=== PATIENT | female | born 1965 | race Caucasian/White ===

== ENCOUNTER 2020-03-27 07:59 | Inpatient (IN) | payer SELFPAY ==
[~2020-03-27] VITALS: Ht 160 cm; Wt 70.8 kg
[2020-03-27 08:11] VITALS: BP 140/87
[2020-03-27 08:22] LABS: BASO % 0.6 % (0.0-1.0); EOS # 0.1 10*3/uL (0.0-0.4); EOS % 0.7 % (1.0-4.0); HEMATOCRIT 43.1 % (37.0-47.0); LYMPH # 1.9 10*3/uL (1.3-4.4); LYMPH % 26.8 % (27.0-41.0); MEAN CELL VOLUME 86.5 fl (81.0-99.0); MEAN CORPUSCULAR HGB 31.3 pg (27.0-31.0); MEAN CORPUSCULAR HGB CONC 36.2 g/dl (33.0-37.0); MONO # 0.4 10*3/uL (0.1-1.0); NEUT # 4.7 10*3/uL (2.3-7.9); NEUT % 65.6 % (47.0-73.0); PLATELET COUNT AUTOMATED 293 10*3/uL (130-400); RED BLOOD COUNT 4.98 10*6/uL (4.10-5.10); WHITE BLOOD COUNT 7.1 10*3/uL (4.8-10.8)
[2020-03-27 08:33] LABS: ACT PARTIAL THROMBO TIME 26.7 SECONDS (20.0-32.1)
[2020-03-27 08:40] LABS: ALBUMIN 3.9 gm/dl (3.1-4.5); ALKALINE PHOSPHATASE 93 U/L (45-117); BUN 11 mg/dl (7-24); CHLORIDE 108 mmol/L (98-107); CREATININE 0.75 mg/dL (0.55-1.02); POTASSIUM 3.6 mmol/L (3.5-5.1); SGOT/AST 15 IU/L (3-35); SGPT/ALT 28 U/L (12-78); SODIUM 137 mmol/L (136-145); TOTAL PROTEIN 8.2 gm/dL (6.4-8.2)
[2020-03-27 08:45] LABS: TROPONIN I < 0.015 ng/ml (<0.045)
[2020-03-27 09:45] VITALS: BP 137/92
--- NOTE | 2020-03-27 09:45 | NUR ---
A 54, admitted to 5E, under the services of CANDACE Olvera MD with a diagnosis of CHEST PAIN. Chief complaint is CHEST PAIN. Patient arrived via stretcher from ER. Monitor applied. Initial assessment completed. Vital signs taken and recorded. CANDACE OLVERA MD notified of admission to the unit. Orders received. See assessment for past medical history, medications and allergies. Patient and/or family oriented to unit. [address] visitation policy reviewed. Clothing/patient valuable form completed. ROWDY TOLEDO
[2020-03-27 12:00] VITALS: BP 131/80
[2020-03-27] MEDS ORDERED: SEROQUEL400 M1 PO (12:13)
[2020-03-27] MEDS ORDERED: WELLBUTRIN XL150 MG PO (12:14)
[2020-03-27] MEDS ORDERED: DOXEPIN HCL100 MG PO (12:51)
[2020-03-27 16:00] VITALS: BP 131/86
--- NOTE | 2020-03-27 19:32 | NUR ---
24 HR CHART CHECK COMPLETE
--- NOTE | 2020-03-27 19:37 | NUR ---
PT SITTING UP IN BED WATCHING TV AT THIS TIME. RESPS ARE EASY AND NONLABORED. NO C/O CP VOICED. BED IS LOW, CALL LIGHT WITHIN REACH. WILL CONTINUE TO MONITOR.
[2020-03-27 20:00] VITALS: BP 108/76
[2020-03-28] VITALS: BP 93/61
[2020-03-28 06:21] LABS: CHOLESTEROL 184 mg/dL (<200); HDL CHOLESTEROL 39 mg/dl (40-60); LDL CHOLESTEROL 103 mg/dL (9-159); TRIGLYCERIDES 208 mg/dl (<150); VLDL CHOLESTEROL 42 mg/dL (6-40)
[2020-03-28 08:00] VITALS: BP 92/58
[2020-03-28 12:00] VITALS: BP 93/65
--- NOTE | 2020-03-28 13:18 | NUR ---
PT MEDICATED WITH TYLENOL FOR HEADHACHE. WILL MONITOR.
--- NOTE | 2020-03-28 14:10 | NUR ---
medication effective per pt. call light in reach. will monitor
--- NOTE | 2020-03-28 15:30 | NUR ---
Pt c/o headache, Dr Andrade notified, new orders received.
--- NOTE | 2020-03-28 15:41 | NUR ---
MEDICATED WITH TORADOL PER ORDERS FOR C/O HEADACHE. CALL LIGHT IN REACH. WILL MONITOR
[2020-03-28 16:00] VITALS: BP 94/56
--- NOTE | 2020-03-28 16:30 | NUR ---
PT STATES MEDICATION EFFECTIVE. CALL LIGHT IN REACH. WILL MONITOR
[2020-03-28 20:00] VITALS: BP 114/71
--- NOTE | 2020-03-28 20:43 | NUR ---
NOTIFIED OF PATIENT'S REQUEST FOR SOMETHING TO MOVE HER BOWELS. CLAIMS LAST BM NOT SINCE SUNDAY 03/25. NEW ORDER RECEIVED.
--- NOTE | 2020-03-28 20:53 | NUR ---
PT TAKEN OFF FILAMENT SHAPER FOR SHOWER. PT ALERT & ORIENTED X3. STEADY GAIT OBSERVED. PT EDUCATED ON HOW TO CALL RN/PA IF NEEDED. PT VERBALIZES UNDERSTANDING. WILL MONITOR. CALL LIGHT IN REACH.
--- NOTE | 2020-03-28 22:16 | NUR ---
PO TYLENOL ADMINSTERED PER PRN ORDER FOR C/O HEADACHE. WILL MONITOR EFFECTIVENESS. CALL LIGHT IN REACH.
--- NOTE | 2020-03-28 23:05 | NUR ---
EARLIER TYLENOL APPEARS EFFECTIVE. PT RESTING IN BED. RESPS EASY/NON-LABORED. WILL MONITOR. CALL LIGHT IN REACH.
[2020-03-29] VITALS: BP 115/70
[2020-03-29] MEDS ORDERED: PANTOPRAZOLE SO40 MG PO (08:48)
--- NOTE | 2020-03-29 09:35 | NUR ---
pt sheila for stress test
--- NOTE | 2020-03-29 10:51 | NUR ---
INFORMED COSNET SIGNED FOR LEXISCAN STRESS TEST WITH DR. KIRK. RESTING EKG RBBB, HR 81, BP 104/80. PULSE OX 100% AND LUNGS CLEAR BILATERALLY. COMPLETED ONE MINUTE OF LEXISCAN PROTOCOL RECEIVING LEXISCAN 0.4MG OVER 10 SECONDS. NO ARRHYTHMIAS NOTED. NONDIAGNOSTIC ST CHANGES PRESENT. PT C/O WARM FEELING, LIKE SHE WAS GOING TO FAINT, HEADACHE, CHEST TIGHTNESS AND NAUSEA. LAST RECOVERY HR 130, BP 120/74. WAITING NUCLEAR SCANNING IN STABLE CONDITION.
[2020-03-29 16:00] VITALS: BP 132/93; BP 150/79
--- NOTE | 2020-03-29 16:35 | NUR ---
Discharge instructions reviewed with patient/family. Patient receptive and verbalizes understanding. Follow-up care arranged. Written instructions given to patient/family. VAISHALI REYES
== END 2020-03-29 17:17 | disposition home or self-care (01) | DRG 313 ==
LOC: ED 07:59 → 5E 08:58 → EDHOLD 08:58 → 5E 09:19
PROVIDERS: Emergency Medicine; ADMIT Internal Medicine
PROC: 4A02XM4 Measurement of Cardiac Total Activity, External Approach (ICD-10-PCS; principal; 2020-03-29)
PROC: 3E073KZ Introduction of Other Diagnostic Substance into Coronary Artery, Percutaneous Approach (ICD-10-PCS; principal; 2020-03-29)
DX: R07.89 Other chest pain (principal); F33.0 Major depressive disorder, recurrent, mild; M79.7 Fibromyalgia; R51 Headache; F43.9 Reaction to severe stress, unspecified; R10.13 Epigastric pain; R11.2 Nausea with vomiting, unspecified; F41.9 Anxiety disorder, unspecified; Z88.0 Allergy status to penicillin; Z91.018 Allergy to other foods; Z90.49 Acquired absence of other specified parts of digestive tract; Z82.49 Family history of ischemic heart disease and other diseases of the circulatory system; Z88.8 Allergy status to other drugs, medicaments and biological substances; Z82.61 Family history of arthritis; Z79.899 Other long term (current) drug therapy

== ENCOUNTER → 2024-08-11 | Outpatient (CLI) | payer OTHER ==
[~2024-08-11] MED LIST: DOXEPIN HCL100 MG PO; PANTOPRAZOLE SO40 MG PO; SEROQUEL400 M1 PO; WELLBUTRIN XL150 MG PO
[2024-08-11 11:33] LABS: BASO % 0.2 % (0.0-1.0); EOS % 0.1 % (1.0-4.0); HEMATOCRIT 44.5 % (37.0-47.0); LYMPH % 12.6 % (27.0-41.0); MEAN CELL VOLUME 87.9 fl (81.0-99.0); MEAN CORPUSCULAR HGB 30.8 pg (27.0-31.0); MEAN CORPUSCULAR HGB CONC 35.1 g/dl (33.0-37.0); MEAN PLATELET VOLUME 9.6 fl (9.6-12.3); MONO % 1.6 % (3.0-9.0); PLATELET COUNT AUTOMATED 286 10*3/uL (130-400); RED BLOOD COUNT 5.06 10*6/uL (4.10-5.10); RED CELL DISTRI WIDTH 12.5 % (0-14.5); WHITE BLOOD COUNT 9.5 10*3/uL (4.8-10.8)
[2024-08-11 11:34] LABS: LYMPH # 1.2 10*3/uL (1.3-4.4); MONO # 0.2 10*3/uL (0.1-1.0); RETICULOCYTE % 2.42 % (0.50-2.50)
[2024-08-11 11:59] LABS: BILIRUBIN Negative (Negative); BLOOD Negative (Negative); CLARITY Clear (Clear); COLOR Yellow (Yellow); GLUCOSE Negative (Negative); KETONE Negative (Negative); LEUKO ESTERASE Negative (Negative); NITRITE Negative (Negative); PH 5.5 (4.5-8.0); UROBILINOGEN 0.2 E.U./dl (0.0-1.0)
[2024-08-11 12:04] LABS: ALKALINE PHOSPHATASE 113 U/L (46-116); BUN 14 mg/dl (9-23); CHLORIDE 105 mmol/L (98-107); CHOLESTEROL 212 mg/dL (<200); GAMMA GLUTAMYL TRANSPEPTIDASE 52 U/L (0-73); LDL CHOLESTEROL 107 mg/dL (9-159); POTASSIUM 3.7 mmol/L (3.4-5.1); SGPT/ALT 90 U/L (5-49); T3 UPTAKE 25.2 % (22.4-36.7); THYROXINE (T4) TOTAL 4.8 ug/dl (4.5-10.9); TOTAL PROTEIN 8.4 gm/dL (6.0-8.0); TRIGLYCERIDES 173 mg/dl (<150)
[2024-08-11 12:05] LABS: VITAMIN D, 25-HYDROXY 42.3 ng/mL (30-100)
[2024-08-11 12:16] LABS: MUCOUS 1+
[2024-08-11 12:32] LABS: ATYPICAL LYMPHS 1 % (0-0); PLATELET SUFFICIENCY NORMAL (NORMAL); TOTAL CELLS COUNTED 100 #CELLS
[2024-08-12 16:09] LABS: ANTI-DSDNA ANTIBODIES 1 IU/mL (0-9)
== END | disposition home or self-care (01) ==
LOC: LAB 10:54
PROVIDERS: ATTEND Family Medicine
DX: R79.89 Other specified abnormal findings of blood chemistry (principal); R53.83 Other fatigue; E78.5 Hyperlipidemia, unspecified; E55.9 Vitamin D deficiency, unspecified

== ENCOUNTER → 2024-11-05 | Outpatient (CLI) | payer OTHER ==
[2024-11-05 13:03] LABS: ALKALINE PHOSPHATASE 109 U/L (46-116); BUN 12 mg/dl (9-23); CHLORIDE 106 mmol/L (98-107); POTASSIUM 4.6 mmol/L (3.4-5.1); SGPT/ALT 23 U/L (5-49)
== END | disposition home or self-care (01) ==
LOC: LAB 12:12
PROVIDERS: ATTEND Orthopaedic Surgery
DX: R53.83 Other fatigue (principal)